=== PATIENT | male | born 1970 | race African-American/Black ===

== ENCOUNTER → 2017-04-16 | Outpatient (CLI) | payer MEDICAID ==
[~2017-04-16] MED LIST: ALB0.5V; ALDACTONE25 MG PO; ATOR10TA66 PO; CARV12.52 PO; CARV6.25 PO; CEFU500T5 PO; CEPH500C PO; CODE-54 PO; DIGO125T PO; FERR256T PO; FRS325T PO; FRSM20T PO; GLMP1T PO; HYDR-1231 PO; HYDR-3002 PO; HYDR-34 PO; HYDR-3720 PO; HYDR-3812; HYDR-757 PO; HYDR1TAB8 OP; IBUP400T22 PO; ISOS30TA74 PO; LOVA20TA2 PO; MAGN400T6 PO; MELO15TA14 PO; MTF500T PO; MTP50T PO; OMEG1CAP51 PO; PHEN118S12; TRAM50TA2 PO; TRM50T PO; [UNRECOGNIZED DRUG - REMARK]
--- NOTE | 2017-04-16 14:06 | Diagnostic Imaging Report ---
Three views of the left knee. INDICATION: Fall. FINDINGS: There is an elongated ossification along the upper medial aspect of the medial femoral condyle with well-corticated margins. This could be related to an avulsion injury of indeterminate age or injury to the proximal aspect of the MCL. There is no acute fracture seen otherwise. Osteophyte formation at the tibial spine and the lateral compartment is seen. There is a moderate suprapatellar effusion suggested. IMPRESSION: Curvilinear ossification along the upper aspect of the medial femoral condyle could relate to an avulsion injury of indeterminate age or sequela of prior MCL injury. Moderate joint effusion. Correlate clinically and with MRI of the left knee if needed. Dictated by: Dictated on workstation # [id number]
== END ==
LOC: RAD 10:31
PROVIDERS: ATTEND Family Medicine
DX: M25.562 Pain in left knee (principal); W19.XXXA Unspecified fall, initial encounter
CPT/HCPCS: 73562

== ENCOUNTER 2017-04-27 19:09 | Emergency (ER) | payer MEDICAID ==
[~2017-04-27] VITALS: Ht 182.9 cm; Wt 81.6 kg
[2017-04-27] MEDS ORDERED: NS IV 1000 ML 1,000 ML IV ONE (19:16)
[2017-04-27] MEDS ORDERED: magnesium (19:20)
[2017-04-27 19:33] LABS: BASOPHILS % (AUTO) 0 % (0-10); EOSINOPHILS % (AUTO) 0 % (0-10); LYMPHOCYTES # (AUTO) 2.7 X 10^3 (1.0-4.0); LYMPHOCYTES % (AUTO) 13 % (12-44); MEAN CORPUSCULAR HEMOGLOBIN 26 PG (25-34); MEAN CORPUSCULAR HGB CONC 34 G/DL (32-36); MEAN CORPUSCULAR VOLUME 76 FL (80-99); MEAN PLATELET VOLUME 9.1 FL (7.4-10.4); MONOCYTES # (AUTO) 1.2 X 10^3 (0.0-1.0); MONOCYTES % (AUTO) 6 % (0-12); NEUTROPHILS # (AUTO) 17.4 X 10^3 (1.8-7.8); NEUTROPHILS % (AUTO) 82 % (42-75); PLATELET COUNT 398 10^3/uL (130-400); RED BLOOD COUNT 5.26 10^6/uL (4.35-5.85); RED CELL DISTRIBUTION WIDTH 14.9 % (10.0-14.5); WHITE BLOOD COUNT 21.3 10^3/uL (4.3-11.0)
--- NOTE | 2017-04-27 19:39 | Diagnostic Imaging Report ---
INDICATION: Altered mental status. Comparison with 07/16/2010. FINDINGS: The lungs are well-aerated. There are no infiltrates. Heart is upper limits of normal. There is no evidence of pulmonary edema. No hilar adenopathy. No pneumothorax or pleural effusion. ICD pacer on the left with leads remaining in good position. IMPRESSION: Stable portable chest with no evidence of acute failure. Dictated by: Dictated on workstation # [id number]
[2017-04-27 19:55] LABS: BAND NEUTROPHILS 2 %; BASOPHILS % (MANUAL) 0 %; EOSINOPHILS % (MANUAL) 0 %; LYMPHOCYTES % (MANUAL) 17 %; NEUTROPHILS % (MANUAL) 74 %
[2017-04-27 19:58] LABS: ALANINE AMINOTRANSFERASE 21 U/L (0-55); ALBUMIN 4.7 G/DL (3.2-4.5); ANION GAP 18 MMOL/L (5-14); ASPARTATE AMINO TRANSFERASE 32 U/L (5-34); BILIRUBIN,TOTAL 0.6 MG/DL (0.1-1.0); BLOOD UREA NITROGEN 17 MG/DL (7-18); BUN/CREATININE RATIO 11; CARBON DIOXIDE 22 MMOL/L (21-32); CHLORIDE 100 MMOL/L (98-107); CREATININE SERUM 1.49 MG/DL (0.60-1.30); GFR ESTIMATED > 60; GLUCOSE 168 MG/DL (70-105); MAGNESIUM 2.9 MG/DL (1.8-2.4); POTASSIUM 3.7 MMOL/L (3.6-5.0); SODIUM 140 MMOL/L (135-145); TOTAL PROTEIN 8.1 G/DL (6.4-8.2)
[2017-04-27 19:59] LABS: ALCOHOL < 10 MG/DL (<10)
[2017-04-27 20:05] LABS: DIGOXIN < 0.30 NG/ML (0.80-2.00); TROPONIN I < 0.30 NG/ML (<0.30)
[2017-04-27 20:17] LABS: BILIRUBIN,URINE NEGATIVE (NEGATIVE); KETONES,URINE NEGATIVE (NEGATIVE); LEUKOCYTE ESTERASE ,URINE NEGATIVE (NEGATIVE); NITRITE,URINE NEGATIVE (NEGATIVE); PH,URINE 6 (5-9); PROTEIN,URINE 2+ (NEGATIVE); UROBILINOGEN,URINE NORMAL (NORMAL)
[2017-04-27 20:30] LABS: SQUAMOUS EPITHELIAL CELL,UR RARE /HPF
--- NOTE | 2017-04-27 21:14 | ED Psychosocial ---
General Chief Complaint: Altered Mental Status Stated Complaint: SUICIDAL, VIOLENT BEHAVIOR Nursing Triage Note: pt to er per ems with police at side. pt is handcuffed to cot upon arrival. ems was called to home by pt's girlfriend for c/o suicidal comments et unusual behavior. unknown substance assumed ingested. he was tearing house up. laying on bathroom floor very drowsy upon police arrival. police requesting medical et psych eval. pt c/o dry mouth. states, "you got the wrong reyna." he denies suicidal ideation upon arrival. Source: patient Exam Limitations: no limitations History of Present Illness Time seen by provider: 19:15 Initial Comments This patient arrives to the emergency room via EMS accompanied by [place] police. He was restrained with handcuffs for combative and uncooperative behavior. Patient's behavior and speech is irrational. 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 Patient denies any health complaints except for extreme thirst. He denies suicidal ideation upon arrival. Patient was reportedly violent at home and was tearing up the house. See note above. Allergies and Home Medications Allergies Coded Allergies: No Known Drug Allergies (Unverified , 02/10/10) Home Medications Atorvastatin Calcium 10 Mg Tablet, 10 MG PO HS, (Reported) Digoxin 125 Mcg Tablet, 0.125 MG PO HS, (Reported) Docosahexanoic Acid/Epa 1 Cap Capsule, 1,000 MG PO DAILY, (Reported) Ferrous Gluconate 256 Mg Tablet, 256 MG PO DAILY, (Reported) Furosemide 20 Mg Tab, 60 MG PO BID, (Reported) TAKE 3 (20MG) TABS Glimepiride 1 Mg Tab, 1 MG PO DAILY, (Reported) Hydralazine Hcl 10 Mg Tablet, 20 MG PO TID, (Reported) TAKE 2 (10MG) TABS Hydrocodone/Acetaminophen 1 Each Tablet, #30 (Reported) Metformin Hcl 500 Mg Tablet, 500 MG PO BID WITH MEALS, (Reported) Metoprolol Tartrate 50 Mg Tablet, 50 MG PO BID, (Reported) Spironolactone 25 Mg Tablet, 25 MG PO DAILY, (Reported) [magnesium] , (Reported) Time Seen by Provider: 19:15 Constitutional: see HPI EENTM: no symptoms reported Respiratory: no symptoms reported Cardiovascular: no symptoms reported Gastrointestinal: see HPI (thirst) Genitourinary: no symptoms reported Musculoskeletal: no symptoms reported Skin: no symptoms reported Psychiatric/Neurological: See HPI Past Cgemdim-Erqvvi-Lzggmb Hx Patient Social History Alcohol Use: Occasionally Uses Recreational Drug Use: Yes (PCP) Smoking Status: Current Everyday Smoker Recent Foreign Travel: No Contact w/Someone Who Travel: No Recent Infectious Disease Expo: No Immunizations Up To Date Tetanus Booster (TDap): Unknown Date of Influenza Vaccine: Jul 24, 2014 Seasonal Allergies Seasonal Allergies: No Surgeries HX Surgeries: Yes (RIGHT ANKLE FX / ORIF) Surgeries: Defibrillator, Orthopedic Respiratory Hx Respiratory Disorders: No Cardiovascular Hx Cardiac Disorders: Yes (CARDIOMYOPATHY, DEFIBRILLATOR, CHF) Cardiac Disorders: Cardiomyopathy, Coronary Artery Disease, Heart Attack, High Cholesterol Neurological Hx Neurological Disorders: No Reproductive System Hx Reproductive Disorders: No Genitourinary Hx Genitourinary Disorders: No Gastrointestinal Hx Gastrointestinal Disorders: Yes (ELEVATED LIVER ENZYMES PER HX) Gastrointestinal Disorders: Liver Disease/Jaundice Musculoskeletal Hx Musculoskeletal Disorders: Yes Musculoskeletal Disorders: Fractures Endocrine Hx Endocrine Disorders: Yes Endocrine Disorders: Diabetes, Non-Insulin dep HEENT HX ENT Disorders: No Cancer Hx Cancer: No Psychosocial Hx Psychiatric Problems: No Integumentary HX Skin/Integumentary Disorder: No Blood Transfusions Hx Blood Disorders: No Physical Exam Vital Signs Vital Sign - Last 12Hours 04/27/17 04/27/17 19:09 21:15 Temp 100.0 Pulse 96 Resp 16 B/P (MAP) 136/91 Pulse Ox 97 O2 Delivery Room Air Capillary Refill : Less Than 3 Seconds General Appearance: WD/WN, moderate distress HEENT: PERRL/EOMI, normal ENT inspection, other (oropharynx somewhat dry) Neck: normal inspection Respiratory: lungs clear, normal breath sounds, no respiratory distress, no accessory muscle use Cardiovascular: regular rate, rhythm, no edema, no murmur Gastrointestinal: normal bowel sounds, non tender, soft Extremities: normal inspection, no pedal edema Neurologic/Psychiatric: wellness director II-XII nml as tested, no motor/sensory deficits, alert, other (agitated, angry, disoriented to date and month) Appearance/Memory: disheveled Behavior/Eye Contact: avoids eye contact, belligerent, uncooperative Skin: normal color, warm/dry Progress/Results/Core Measures Results/Orders Lab Results Laboratory Tests Test 04/27/17 19:23 04/27/17 20:10 04/27/17 20:40 Range/Units White Blood Count 21.3 H 4.3-11.0 10^3/uL Red Blood Count 5.26 4.35-5.85 10^6/uL Hemoglobin 13.7 13.3-17.7 G/DL Hematocrit 40 40-54 % Mean Corpuscular Volume 76 L 80-99 FL Mean Corpuscular Hemoglobin 26 25-34 PG Mean Corpuscular Hemoglobin Concent 34 32-36 G/DL Red Cell Distribution Width 14.9 H 10.0-14.5 % Platelet Count 398 130-400 10^3/uL Mean Platelet Volume 9.1 7.4-10.4 FL Neutrophils (%) (Auto) 82 H 42-75 % Lymphocytes (%) (Auto) 13 12-44 % Monocytes (%) (Auto) 6 0-12 % Eosinophils (%) (Auto) 0 0-10 % Basophils (%) (Auto) 0 0-10 % Neutrophils # (Auto) 17.4 H 1.8-7.8 X 10^3 Lymphocytes # (Auto) 2.7 1.0-4.0 X 10^3 Monocytes # (Auto) 1.2 H 0.0-1.0 X 10^3 Eosinophils # (Auto) 0.0 0.0-0.3 10^3/uL Basophils # (Auto) 0.0 0.0-0.1 10^3/uL Neutrophils % (Manual) 74 % Lymphocytes % (Manual) 17 % Monocytes % (Manual) 7 % Eosinophils % (Manual) 0 % Basophils % (Manual) 0 % Band Neutrophils 2 % Blood Morphology Comment NORMAL Sodium Level 140 135-145 MMOL/L Potassium Level 3.7 3.6-5.0 MMOL/L Chloride Level 100 98-107 MMOL/L Carbon Dioxide Level 22 21-32 MMOL/L Anion Gap 18 H 5-14 MMOL/L Blood Urea Nitrogen 17 7-18 MG/DL Creatinine 1.49 H 0.60-1.30 MG/DL Estimat Glomerular Filtration Rate > 60 BUN/Creatinine Ratio 11 Glucose Level 168 H 70-105 MG/DL Calcium Level 10.0 8.5-10.1 MG/DL Magnesium Level 2.9 H 1.8-2.4 MG/DL Total Bilirubin 0.6 0.1-1.0 MG/DL Aspartate Amino Transf (AST/SGOT) 32 5-34 U/L Alanine Aminotransferase (ALT/SGPT) 21 0-55 U/L Alkaline Phosphatase 54 40-136 U/L Troponin I < 0.30 <0.30 NG/ML C-Reactive Protein High Sensitivity 0.08 0.00-0.50 MG/DL B-Type Natriuretic Peptide 35.0 <100.0 PG/ML Total Protein 8.1 6.4-8.2 G/DL Albumin 4.7 H 3.2-4.5 G/DL Digoxin Level < 0.30 L 0.80-2.00 NG/ML Serum Alcohol < 10 <10 MG/DL Urine Color YELLOW Urine Clarity CLEAR Urine pH 6 5-9 Urine Specific [place] 1.015 L 1.016-1.022 Urine Protein 2+ H NEGATIVE Urine Glucose (UA) NEGATIVE NEGATIVE Urine Ketones NEGATIVE NEGATIVE Urine Nitrite NEGATIVE NEGATIVE Urine Bilirubin NEGATIVE NEGATIVE Urine Urobilinogen NORMAL NORMAL MG/DL Urine Leukocyte Esterase NEGATIVE NEGATIVE Urine RBC (Auto) 1+ H NEGATIVE Urine RBC NONE /HPF Urine WBC NONE /HPF Urine Squamous Epithelial Cells RARE /HPF Urine Crystals NONE /LPF Urine Bacteria NONE /HPF Urine Casts NONE /LPF Urine Mucus NEGATIVE /LPF Urine Culture Indicated NO Urine Opiates Screen NEGATIVE NEGATIVE Urine Oxycodone Screen NEGATIVE NEGATIVE Urine Methadone Screen NEGATIVE NEGATIVE Urine Propoxyphene Screen NEGATIVE NEGATIVE Urine Barbiturates Screen NEGATIVE NEGATIVE Ur Tricyclic Antidepressants Screen NEGATIVE NEGATIVE Urine Phencyclidine Screen POSITIVE H NEGATIVE Urine Amphetamines Screen NEGATIVE NEGATIVE Urine Methamphetamines Screen NEGATIVE NEGATIVE Urine Benzodiazepines Screen NEGATIVE NEGATIVE Urine Cocaine Screen NEGATIVE NEGATIVE Urine Cannabinoids Screen NEGATIVE NEGATIVE Lactic Acid Level 0.95 0.50-2.00 MMOL/L Micro Results Microbiology 04/27/17 Blood Culture - Preliminary, Resulted No growth My Orders Orders - NIYA SALGADO MD Alcohol (04/27/17 19:16) BNP (04/27/17 19:16) Cbc With Automated Diff (04/27/17 19:16) Comprehensive Metabolic Panel (04/27/17 19:16) Digoxin (04/27/17 19:16) Drug Screen Stat (Urine) (04/27/17 19:16) Magnesium (04/27/17 19:16) Troponin I (04/27/17 19:16) Ua Culture If Indicated (04/27/17 19:16) Chest 1 View, Ap/Pa Only (04/27/17 19:16) Saline Lock/Iv-Start (04/27/17 19:16) Ekg Tracing (04/27/17 19:16) Monitor-Rhythm Ecg Trace Only (04/27/17 19:16) Ns Iv 1000 Ml (Sodium Chloride 0.9%) (04/27/17 19:16) Manual Differential (04/27/17 19:23) Hs C Reactive Protein (04/27/17 20:19) Lactic Acid Analyzer (04/27/17 20:19) Blood Culture (04/27/17 20:19) Medications Given in ED Vital Signs/I&O Blood Pressure Mean: 106 Progress Note : Progress Note Patient eventually calm down. Police stayed for an extended period of time to ensure patient compliance. He received a liter of IV fluids. Leukocytosis was noted without any identified source of infection. CRP was not elevated. Patient ultimately was discharged with improved behavior. Patient did test positive for PCP as suspected by police. Patient expressed no suicidal ideation while in the emergency room. Departure Impression Impression: Primary Impression: PCP (phencyclidine) abuse Additional Impressions: Agitation Leukocytosis Qualified Codes: D72.829 - Elevated white blood cell count, unspecified Disposition: 01 HOME, SELF-CARE Condition: Improved Departure-Patient Inst. Decision time for Depature: 21:12 Referrals: NNEKA CANELA DO (PCP/Family) Primary Care Physician Patient Instructions: Drug Abuse and Drug Addiction (DC) Add. Discharge Instructions: Follow-up with Dr. Canela as soon as possible. Your white blood cell count was elevated today (leukocytosis). You need to see Dr. Canela about repeating a blood test to check this again. Refrain from any illicit or recreational drug use. Discuss drug abuse treatment programs with Dr. Canela. Return to the ER symptoms worsen. All discharge instructions reviewed with patient and/or family. Voiced understanding. Copy Copies To 1: NNEKA CANELA JOSHUA T MD Apr 27, 2017 21:14
[2017-04-27 21:15] VITALS: BP 140/93
== END 2017-04-27 21:15 | disposition home or self-care (01) ==
LOC: EDUNIT# 19:09 → ER 19:15
DX: F16.10 Hallucinogen abuse, uncomplicated (principal); R45.1 Restlessness and agitation; D72.829 Elevated white blood cell count, unspecified; E11.9 Type 2 diabetes mellitus without complications; E78.00 Pure hypercholesterolemia, unspecified; I25.10 Atherosclerotic heart disease of native coronary artery without angina pectoris; Z79.84 Long term (current) use of oral hypoglycemic drugs; Z95.810 Presence of automatic (implantable) cardiac defibrillator
CPT/HCPCS: 36415; 71010; 80053; 80162; 80306; 80320; 81000; 83605; 83735; 83880; 84484; 85007; 85027; 86141; 87040; 93005

== ENCOUNTER → 2017-09-17 | Outpatient (CLI) | payer MEDICAID ==
[~2017-09-17] MED LIST changes: +magnesium
[2017-09-17 09:47] LABS: MEAN PLATELET VOLUME 9.2 FL (7.4-10.4); RED BLOOD COUNT 5.5 10^6/uL (4.35-5.85); RED CELL DISTRIBUTION WIDTH 15.3 % (10.0-14.5); WHITE BLOOD COUNT 9.5 10^3/uL (4.3-11.0)
[2017-09-17 10:07] LABS: ALANINE AMINOTRANSFERASE 21 U/L (0-55); ALBUMIN 4.5 GM/DL (3.2-4.5); ANION GAP 9 MMOL/L (5-14); ASPARTATE AMINO TRANSFERASE 14 U/L (5-34); BILIRUBIN,TOTAL 0.3 MG/DL (0.1-1.0); BLOOD UREA NITROGEN 14 MG/DL (7-18); BUN/CREATININE RATIO 14; CALCIUM 9.6 MG/DL (8.5-10.1); CARBON DIOXIDE 29 MMOL/L (21-32); CHLORIDE 101 MMOL/L (98-107); CHOLESTEROL 175 MG/DL (< 200); DIRECT LDL 84 MG/DL (1-129); GFR ESTIMATED > 60; GLUCOSE 173 MG/DL (70-105); POTASSIUM 4.3 MMOL/L (3.6-5.0); SODIUM 139 MMOL/L (135-145); TRIGLYCERIDES 97 MG/DL (<150); VLDL CHOLESTEROL 19 MG/DL (5-40)
== END ==
LOC: LAB 09:21
PROVIDERS: ATTEND Family Medicine
DX: I25.10 Atherosclerotic heart disease of native coronary artery without angina pectoris (principal); E11.9 Type 2 diabetes mellitus without complications
CPT/HCPCS: 36415; 80053; 80061; 83036; 85027

== ENCOUNTER → 2018-01-13 | Outpatient (CLI) | payer MEDICAID ==
[~2018-01-13] MED LIST changes: +ACHD5005; -HYDR-3812
== END ==
LOC: CARD 12:44
PROVIDERS: ATTEND Internal Medicine Cardiovascular Disease
DX: I11.0 Hypertensive heart disease with heart failure (principal); I50.22 Chronic systolic (congestive) heart failure; E11.9 Type 2 diabetes mellitus without complications; E78.4 Other hyperlipidemia; I25.5 Ischemic cardiomyopathy; Z91.19 Patient's noncompliance with other medical treatment and regimen; Z95.810 Presence of automatic (implantable) cardiac defibrillator; Z72.0 Tobacco use
CPT/HCPCS: 93306

== ENCOUNTER → 2019-11-08 | Outpatient (CLI) | payer MEDICAID ==
[~2019-11-08] VITALS: Ht 186 cm; Wt 89.0 kg
[~2019-11-08] MED LIST changes: +CATHETER FLUSH 10 ML SYR IV PRN; +REGADENOSON 0.4 MG/5 ML SYR (LEXISCAN) IV ONE
[2019-11-08 09:17] VITALS: BP 128/77
[2019-11-08 09:20] VITALS: BP 136/82
--- NOTE | 2019-11-10 12:34 | STRESS TEST ---
DATE OF SERVICE: 11/08/2019 RESTING AND POST REGADENOSON TECHNETIUM-99M TETROFOSMIN SPECT CT IMAGING ORDERING PHYSICIAN: Nat Dominguez APRN PRIMARY PHYSICIAN: Yassine Tadeo DO. OTHER PHYSICIAN: Rajeev Sears MD, MA, FACP, FACC. CLINICAL DIAGNOSES: History of dilated cardiomyopathy and systolic congestive heart failure. Baseline images were carried out after injection of 10.88 mCi of technetium-99m Tetrofosmin. This was followed by 0.4 mg regadenoson and 28.1 mCi of technetium-99m Tetrofosmin for stress imaging. The electrocardiogram showed sinus rhythm at baseline. The electrocardiogram is suggestive of left ventricular hypertrophy. There is nonspecific ST abnormality. The electrocardiogram did not change significantly with the regadenoson infusion. The patient noted mild shortness of breath following regadenoson infusion, which resolved in a few minutes. Review of images at rest and following stress does not indicate any distinct perfusion defects consistent with significant myocardial ischemia or infarction. Gated images show mild to moderate global hypokinesis, which left him with a calculated left ventricular ejection fraction 42%. Left ventricular end diastolic volume is 106 mL. TID is absent (0.96). CONCLUSIONS: 1. No evidence of significant myocardial ischemia or infarction. 2. Mild to moderate global hypokinesis of left ventricle with a calculated ejection fraction of 42%. 3. Mild cardiomegaly. Job ID: [id number] DocumentID: [id number] Dictated Date: 11/10/2019 10:10:12 Body Shop Manager Date: 11/10/2019 12:33:14 Dictated By: RAJEEV SEARS MD, MUKUL, FACP, FACC,
== END ==
LOC: CARD 07:28
PROVIDERS: ATTEND Nurse Practitioner Family
DX: I50.22 Chronic systolic (congestive) heart failure (principal); I42.0 Dilated cardiomyopathy; I51.7 Cardiomegaly
CPT/HCPCS: 78452; 93017

== ENCOUNTER → 2020-10-25 | Outpatient (CLI) | payer MEDICAID ==
[~2020-10-25] MED LIST changes: -CATHETER FLUSH 10 ML SYR IV PRN; -REGADENOSON 0.4 MG/5 ML SYR (LEXISCAN) IV ONE
== END ==
LOC: CARD 14:30
PROVIDERS: ATTEND Nurse Practitioner Family
DX: I42.0 Dilated cardiomyopathy (principal)

== ENCOUNTER 2022-03-13 14:26 | Emergency (ER) | payer MEDICAID ==
[~2022-03-13] VITALS: Ht 185 cm; Wt 85.7 kg
--- NOTE | 2022-03-13 15:13 | ED Cardiac General ---
History of Present Illness General Chief Complaint: Cardiac/General Problems Stated Complaint: DEFIB VIBRATING Nursing Triage Note: PT PRESENTS TO ED ACCOMPANIED BY SPOUSE WITH COMPLAINTS OF HIS DEFIB "VIBRATING" SINCE LAST NIGHT. PT DENIES PAIN Source: patient Exam Limitations: no limitations History of Present Illness Date Seen by Provider: Mar 13, 2022 Time Seen by Provider: 15:11 Initial Comments To ER with reports that his defibrillator is vibrating. He follows with Dr. Sears who placed his defibrillator for history of nonischemic Timing/Duration: changing over time Severity: mild Prior CP/Workup: no prior chest pain NTG SL TREE EXPERT: No ASA po TREE EXPERT: No Associated Systoms: Denies Symptoms Allergies and Home Medications Allergies Coded Allergies: No Known Drug Allergies (Unverified , 02/10/10) Patient Home Medication List Home Medication List Reviewed: Yes Atorvastatin Calcium (Atorvastatin Calcium) 10 Mg Tablet, 10 MG PO HS, (Reporte d) Entered as Reported by: HIGINIO MORALEZ on 11/30/142018 Digoxin (Digoxin 125 Mcg) 125 Mcg Tablet, 0.125 MG PO HS, (Reported) Entered as Reported by: KASH HENNESSY on 07/16/101712 Docosahexanoic Acid/Epa (Fish Oil 1,000 Mg Softgel) 1 Cap Capsule, 1,000 MG PO DAILY, (Reported) Entered as Reported by: ZENON SANTANA on 12/18/141514 Ferrous Gluconate (Iron) 256 Mg Tablet, 256 MG PO DAILY, (Reported) Entered as Reported by: ZENON SANTANA on 12/18/14 151 Furosemide (Lasix Tab) 20 Mg Tab, 60 MG PO BID, (Reported) Entered as Reported by: KASH HENNESSY on 07/16/101712 Glimepiride (Amaryl) 1 Mg Tab, 1 MG PO DAILY, (Reported) Entered as Reported by: KASH HENNESSY on 07/16/101712 Hydralazine Hcl (Hydralazine Hcl) 10 Mg Tablet, 20 MG PO TID, (Reported) Entered as Reported by: KASH HENNESSY on 07/16/101712 Hydrocodone Bit/Acetaminophen (Lortab 5 Mg Tablet) 1 Each Tablet, (Reported) Entered as Reported by: IMANI SAPP on 04/24/16 0816 Metformin Hcl (Metformin 500 Mg) 500 Mg Tablet, 500 MG PO BID WITH MEALS, (Reported) Entered as Reported by: HIGINIO MORALEZ on 11/30/142018 Metoprolol Tartrate (Metoprolol Tartrate 50 Mg) 50 Mg Tablet, 50 MG PO BID, (Reported) Entered as Reported by: GIGI MARQUES on 02/25/13 08 Spironolactone (Aldactone) 25 Mg Tablet, 25 MG PO DAILY, (Reported) Entered as Reported by: GIGI MARQUES on 02/25/13816 [magnesium] , (Reported) Entered as Reported by: HOLLY ALARCON on 04/27/171919 Review of Systems Review of Systems Constitutional: see HPI EENTM: No Symptoms Reported Respiratory: No Symptoms Reported Cardiovascular: No Symptoms Reported Gastrointestinal: No Symptoms Reported Genitourinary: No Symptoms Reported Musculoskeletal: no symptoms reported Skin: no symptoms reported Psychiatric/Neurological: No Symptoms Reported Endocrine: No Symptoms Reported Hematologic/Lymphatic: No Symptoms Reported Past Lvinxsb-Syfxyc-Xhxkda Hx Patient Social History Tobacco Use?: Yes Tobacco type used: Cigarettes Smoking Status: Current Everyday Smoker Substance use?: No Alcohol Use?: No Pt feels they are or have been: No Immunizations Up To Date Tetanus Booster (TDap): Unknown First/Initial COVID19 Vaccinat: YES Second COVID19 Vaccination Ashish: YES COVID19 Vaccine Voice Professor: HARSH Seasonal Allergies Seasonal Allergies: No Past Medical History Surgery/Hospitalization HX: DEFIBULATOR, CHF, DM Surgeries: Yes (RIGHT ANKLE FX / ORIF) Defibrillator, Orthopedic Respiratory: No Cardiac: Yes (CARDIOMYOPATHY, DEFIBRILLATOR, CHF) Cardiomyopathy, Coronary Artery Disease, Heart Attack, High Cholesterol Neurological: No Reproductive Disorders: No Gastrointestinal: Yes (ELEVATED LIVER ENZYMES PER HX) Liver Disease/Jaundice Musculoskeletal: Yes Fractures Endocrine: Yes Diabetes, Non-Insulin dep Cancer: No Psychosocial: No Integumentary: No Blood Disorders: No Physical Exam Vital Signs Vital Signs - First Documented 03/13/22 14:41 Temp 36.4 Pulse 69 Resp 18 B/P (MAP) 99/70 (80) Pulse Ox 99 Capillary Refill : Less Than 3 Seconds Height, Weight, BMI Height: 6'1" Weight: 180lbs. 6.4oz. 81.440388eg; 25.00 BMI Method:Estimated General Appearance: No Apparent Distress, WD/WN HEENT: PERRL/EOMI, TMs Normal Neck: Full Range of Motion, Normal Inspection Respiratory: No Accessory Muscle Use, No Respiratory Distress Cardiovascular: Regular Rate, Rhythm, Normal Peripheral Pulses Gastrointestinal: Normal Bowel Sounds, Non Tender, Soft Extremity: Normal Capillary Refill, Normal Inspection Neurologic/Psychiatric: Alert, Oriented x3 Skin: Normal Color, Warm/Dry Progress/Results/Core Measures Results/Orders Vital Signs/I&O 03/13/22 14:41 Temp 36.4 Pulse 69 Resp 18 B/P (MAP) 99/70 (80) Pulse Ox 99 Blood Pressure Mean: 80 Departure Communication (Admissions) [id number]-after several phone calls, we determined that his defibrillator is a [employer] type. There was some miscommunication, Dr. Sears's office to have most of thought the patient was getting shocked. [employer] dermatology sales representative on-call states that this vibration that he is feeling indicates that the device is nearing the end of its life and from the onset of vibrations he has 6 months until he needs the batteries replaced. They state they would not have referred him to the emergency room for this as this is only indicative of need for device exchange. I will discharge, he will follow-up with Dr. Sears. Impression Primary Impression: ICD (implantable cardioverter-defibrillator) battery depletion Disposition: 01 HOME, SELF-CARE Condition: Stable Departure-Patient Inst. Decision time for Depature: 16:29 Referrals: NNEKA CANELA DO (PCP/Family) Primary Care Physician ANDRAE SEARS MD [facility] Patient Instructions: Implantable Cardioverter Defibrillator Generator Change Add. Discharge Instructions: 1. Call Dr. Sears's office to schedule an appointment to be seen for battery change All discharge instructions reviewed with patient and/or family. Voiced under standing. Copy Copies To 1: ANDRAE SEARS MD [facility] VICKI ELLIS APRN Mar 13, 2022 15:13
--- NOTE | 2022-03-13 15:18 | Diagnostic Imaging Report ---
CHEST 1 VIEW, AP/PA ONLY Indication: Chest pain. Comparison: 04/27/2017 Findings: No focal airspace disease in the visualized lungs. Please note that the posterior lower lobes are poorly evaluated by portable radiography. No pleural effusion or pneumothorax. Normal cardiomediastinal silhouette. Stable left pectoral transvenous single chamber pacemaker/ICD. Impression: 1. No acute cardiopulmonary process by portable radiography. Dictated by: Dictated on workstation # [id number]
[2022-03-13 16:36] VITALS: BP 117/82
== END 2022-03-13 16:36 | disposition home or self-care (01) ==
LOC: EDUNIT# 14:26 → ER 14:27
DX: T82.111A Breakdown (mechanical) of cardiac pulse generator (battery), initial encounter (principal); F17.210 Nicotine dependence, cigarettes, uncomplicated
CPT/HCPCS: 71045; 93005; 93041

== ENCOUNTER → 2022-08-27 | Outpatient (CLI) | payer MEDICAID | LOC: CARD 14:31 | PROVIDERS: ATTEND Nurse Practitioner Family | DX: I42.0 Dilated cardiomyopathy (principal); I51.7 Cardiomegaly | CPT/HCPCS: 93306 ==

== ENCOUNTER 2022-10-07 07:16 | Day surgery (SDC) | payer MEDICAID ==
[~2022-10-07] VITALS: Ht 185.4 cm; Wt 89.8 kg
[2022-10-07] MEDS ORDERED: HEParin (CATH LAB) 0 ML IV ONE (07:41)
[2022-10-07] MEDS ORDERED: NS IV 1000 ML 0 ML ONE ×2 (07:41→08:13)
[2022-10-07] MEDS ORDERED: LIDOCAINE 1% INJ 30 ML (XYLOCAINE) VIAL ONE (07:41)
[2022-10-07] MEDS ORDERED: NS IV 1000 ML 1,000 ML IV SCH (07:45)
[2022-10-07 07:56] VITALS: BP 131/81
[2022-10-07 08:16] LABS: HEMATOCRIT 45 % (40-54); HEMOGLOBIN 14.3 g/dL (13.3-17.7); MEAN CORPUSCULAR HEMOGLOBIN 26 pg (25-34); MEAN CORPUSCULAR HGB CONC 32 g/dL (32-36); MEAN CORPUSCULAR VOLUME 81 fL (80-99); PLATELET COUNT 374 10^3/uL (130-400); WHITE BLOOD COUNT 10.9 10^3/uL (4.3-11.0)
[2022-10-07 08:29] LABS: INR 0.9 (0.8-1.4); PROTHROMBIN TIME PATIENT 12.2 SEC (12.2-14.7)
[2022-10-07 08:30] LABS: ALBUMIN 4.4 GM/DL (3.2-4.5); BILIRUBIN,TOTAL 0.2 MG/DL (0.1-1.0); CALCIUM 9.1 MG/DL (8.5-10.1); CREATININE SERUM 1.09 MG/DL (0.60-1.30); POTASSIUM 4.6 MMOL/L (3.6-5.0); TOTAL PROTEIN 7.3 GM/DL (6.4-8.2)
[2022-10-07] MEDS ORDERED: MAGN400T39 PO (08:40)
[2022-10-07] MEDS ORDERED: METF-397 PO (08:40)
[2022-10-07] MEDS ORDERED: LISI10TA25 PO (08:40)
[2022-10-07] MEDS ORDERED: FERR134T PO (08:40)
[2022-10-07] MEDS ORDERED: ATOR10TA66 PO (08:40)
[2022-10-07] MEDS ORDERED: FURO20TA4 PO (08:40)
[2022-10-07] MEDS ORDERED: TERB250T88 PO (08:40)
[2022-10-07] MEDS ORDERED: FISH1CAP15 PO (08:40)
[2022-10-07] MEDS ORDERED: ACET325T38 PO (08:40)
[2022-10-07] MEDS ORDERED: GLIM4TAB5 PO (08:40)
[2022-10-07] MEDS ORDERED: HYDR-3922 PO (08:40)
[2022-10-07] MEDS ORDERED: METO100T12 PO (08:40)
[2022-10-07] MEDS ORDERED: DIGO125T3 PO (08:40)
[2022-10-07] MEDS ORDERED: LORA10TA7 PO (08:40)
[2022-10-07] MEDS ORDERED: EMPA25TA PO (08:40)
== END 2022-10-07 12:36 | disposition home or self-care (01) ==
LOC: CATH 07:16
PROVIDERS: ATTEND Internal Medicine Cardiovascular Disease
DX: I42.0 Dilated cardiomyopathy (principal); I11.9 Hypertensive heart disease without heart failure; I50.22 Chronic systolic (congestive) heart failure; E11.9 Type 2 diabetes mellitus without complications; R06.09 Other forms of dyspnea; F17.210 Nicotine dependence, cigarettes, uncomplicated; Z95.810 Presence of automatic (implantable) cardiac defibrillator; Z91.14 Patient's other noncompliance with medication regimen; Z91.199 Patient's noncompliance with other medical treatment and regimen due to unspecified reason; Z53.09 Procedure and treatment not carried out because of other contraindication; Z79.84 Long term (current) use of oral hypoglycemic drugs
CPT/HCPCS: 36415; 80053; 85027; 85610; 85730; 87081; 93005

== ENCOUNTER 2022-11-02 18:09 | Emergency (ER) | payer MEDICAID ==
[~2022-11-02] VITALS: Ht 182 cm; Wt 86.0 kg
[~2022-11-02 18:09] MED LIST changes: +ACET325T38 PO; +DIGO125T3 PO; +EMPA25TA PO; +FERR134T PO; +FISH1CAP15 PO; +FURO20TA4 PO; +GLIM4TAB5 PO; +HYDR-3922 PO; +LISI10TA25 PO; +LORA10TA7 PO; +MAGN400T39 PO; +METF-397 PO; +METO100T12 PO; +TERB250T88 PO
[2022-11-02] MEDS ORDERED: MIDAZOLAM 5 MG/5 ML (VERSED) VIAL ONE (18:18)
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
[2022-11-02] MEDS ORDERED: MIDAZOLAM 5 MG/5 ML (VERSED) VIAL IVP ONE ×2 (18:45)
[2022-11-02] MEDS ORDERED: NS IV 1000 ML 1,000 ML IV ONE (18:45)
[2022-11-02 18:46] LABS: BASOPHILS # (AUTO) 0.1 10^3/uL (0.0-0.1); BASOPHILS % (AUTO) 0 % (0-10); EOSINOPHILS % (AUTO) 0 % (0-10); HEMATOCRIT 47 % (40-54); LYMPHOCYTES # (AUTO) 3.7 10^3/uL (1.0-4.0); LYMPHOCYTES % (AUTO) 18 % (12-44); MEAN CORPUSCULAR HEMOGLOBIN 26 pg (25-34); MEAN CORPUSCULAR HGB CONC 32 g/dL (32-36); MEAN CORPUSCULAR VOLUME 80 fL (80-99); MEAN PLATELET VOLUME 9.3 fL (9.0-12.2); MONOCYTES # (AUTO) 1.3 10^3/uL (0.0-1.0); MONOCYTES % (AUTO) 7 % (0-12); NEUTROPHILS # (AUTO) 14.9 10^3/uL (1.8-7.8); NEUTROPHILS % (AUTO) 75 % (42-75); PLATELET COUNT 427 10^3/uL (130-400)
[2022-11-02 19:01] LABS: ALANINE AMINOTRANSFERASE 41 U/L (0-55); ALBUMIN 5.1 GM/DL (3.2-4.5); ALKALINE PHOSPHATASE 66 U/L (40-136); BILIRUBIN,TOTAL 0.4 MG/DL (0.1-1.0); BUN/CREATININE RATIO 11; CALCIUM 10.1 MG/DL (8.5-10.1); CARBON DIOXIDE 20 MMOL/L (21-32); CHLORIDE 99 MMOL/L (98-107); CREATININE SERUM 1.65 MG/DL (0.60-1.30); GFR ESTIMATED 50; GLUCOSE 234 MG/DL (70-105); MAGNESIUM 2.5 MG/DL (1.6-2.4); POTASSIUM 4.4 MMOL/L (3.6-5.0); SALICYLATE < 5.0 MG/DL (5.0-20.0); SODIUM 141 MMOL/L (135-145); TOTAL PROTEIN 8.5 GM/DL (6.4-8.2)
--- NOTE | 2022-11-02 19:01 | Diagnostic Imaging Report ---
INDICATION: Chest pain. COMPARISON: Prior examination from 03/13/2022. FINDINGS: The heart size is normal. The lungs are clear. There is no pleural effusion or pneumothorax. The mediastinum is unremarkable. Pacemaker overlies the left hemithorax. IMPRESSION: No acute cardiopulmonary abnormality. Dictated by: Dictated on workstation # [id number]
[2022-11-02 19:03] LABS: ANISOCYTOSIS SLIGHT; BAND NEUTROPHILS 0 %; BASOPHILS % (MANUAL) 0 %; EOSINOPHILS % (MANUAL) 0 %; LYMPHOCYTES % (MANUAL) 19 %; MONOCYTES % (MANUAL) 6 %; NEUTROPHILS % (MANUAL) 75 %
[2022-11-02 19:21] LABS: ACETAMINOPHEN < 10 UG/ML (10-30)
== END 2022-11-02 20:19 | disposition left against medical advice (07) ==
LOC: EDUNIT# 18:09 → ER 18:12
DX: F16.929 Hallucinogen use, unspecified with intoxication, unspecified (principal); R74.8 Abnormal levels of other serum enzymes
CPT/HCPCS: 71045; 80053; 83735; 83880; 84484; 85007; 85027; 93005; 93041; 99284; G0480 ×3; 36415; 80320; 80329

== ENCOUNTER 2023-08-26 18:51 | Emergency (ER) | payer MEDICAID ==
[~2023-08-26] VITALS: Ht 185 cm; Wt 85.0 kg
[2023-08-26 18:58] VITALS: BP 155/66
[2023-08-26] MEDS ORDERED: AMOX1TAB12 PO (19:26)
--- NOTE | 2023-08-26 19:27 | ED Integumentary General ---
General Chief Complaint: Skin/Wound Problems Stated Complaint: BOTTOM LIP WOUND - FALL Nursing Triage Note: fell and split inside of bottom lip thursday. is afraid it "isnt healing right". no bleeding noted. Source: patient Exam Limitations: no limitations (LIYA LI) History of Present Illness Date Seen by Provider: Aug 26, 2023 Time Seen by Provider: 19:23 Initial Comments Patient is a 53-year-old male who presents ED with a wound to his lower lip. Patient states he fell on Thursday busting his lower lip to open. Did not get seen. Noted to have some tissue that is dangling from the injury. Denies of any redness or swelling. Is diabetic. Up-to-date on his tetanus. Denies of any purulent drainage but does have a history of wound infections secondary to being diabetic. Patient denies any dental pain, chest pain, shortness of breath, nausea vomiting, diarrhea, fever, chills. (LIYA LI) Allergies and Home Medications Allergies Coded Allergies: No Known Drug Allergies (Unverified , 02/10/10) Patient Home Medication List Home Medication List Reviewed: Yes (LIYA LI) Acetaminophen (Tylenol) 325 Mg Tablet, 650 MG PO Q6H PRN for PAIN-MILD (1-4), (Reported) Entered as Reported by: TAYA SHELLEY on 10/07/22839 Amoxicillin/Potassium Clav (Amox Tr-K Clv 875-125 mg Tab) 875 Mg-125 Mg Tablet, 1 EACH PO BID Prescribed by: ZAHIRA DUTTON on 08/26/231925 Atorvastatin Calcium (Atorvastatin Calcium) 10 Mg Tablet, 10 MG PO HS, (Reported) Entered as Reported by: TAYA SHELLEY on 10/07/22 08 Digoxin (Digoxin) 125 Mcg (0.125 Mg) Tablet, 125 MCG PO HS, (Reported) Entered as Reported by: TAYA SHELLEY on 10/07/22 08 Empagliflozin (Jardiance) 25 Mg Tablet, 25 MG PO HS, (Reported) Entered as Reported by: TAYA SHELLEY on 10/07/22 0840 Ferrous Sulfate (High Potency Iron) 134 Mg (27 Mg) Tablet, 134 MG PO DAILY, (Reported) Entered as Reported by: TAYA SHELLEY on 10/07/22839 Fish Oil/Dha/Epa (Fish Oil 1,200 mg Fish Oil) 1,200 Mg-144 Mg-216 Mg Capsule, 1 EACH PO BID, (Reported) Entered as Reported by: TAYA SHELLEY on 10/07/22839 Furosemide (Furosemide) 20 Mg Tablet, 20 MG PO DAILY, (Reported) Entered as Reported by: TAYA SHELLEY on 10/07/22839 Glimepiride (Glimepiride) 4 Mg Tablet, 8 MG PO DAILY, (Reported) Entered as Reported by: TAYA SHELLEY on 10/07/22839 Hydralazine HCl (Hydralazine HCl) 10 Mg Tablet, 20 MG PO TID, (Reported) Entered as Reported by: TAYA SHELLEY on 10/07/22839 Lisinopril (Lisinopril) 10 Mg Tablet, 10 MG PO DAILY, (Reported) Entered as Reported by: TAYA SHELLEY on 10/07/22839 Loratadine (Loratadine) 10 Mg Tablet, 10 MG PO DAILY, (Reported) Entered as Reported by: TAYA SHELLEY on 10/07/22839 Magnesium Oxide (Magnesium) 400 Mg Magnesium Tablet, 400 MG PO DAILY, (Reported) Entered as Reported by: TAYA SHELLEY on 10/07/22839 Metformin HCl (Metformin HCl) 500 Mg Tablet, 1,000 MG PO BID WITH MEALS, (Reported) Entered as Reported by: TAYA SHELLEY on 10/07/22839 Metoprolol Tartrate (Metoprolol Tartrate) 100 Mg Tablet, 100 MG PO BID, (Reported) Entered as Reported by: TAYA SHELLEY on 10/07/22839 Terbinafine HCl (Terbinafine HCl) 250 Mg Tablet, 250 MG PO DAILY, (Reported) Entered as Reported by: TAYA SHELLEY on 10/07/22839 Review of Systems Review of Systems Constitutional: No chills, No diaphoresis EENTM: mouth pain; No hearing loss, No ear pain, No blurred vision Respiratory: No dyspnea on exertion Gastrointestinal: No abdominal pain, No diarrhea, No nausea, No vomiting Genitourinary: No decreased output, No discharge Musculoskeletal: No back pain, No joint pain, No joint swelling, No muscle pain Skin: change in color Psychiatric/Neurological: Denies Anxiety, Denies Depressed (LIYA LI) All Other Systems Reviewed Negative Unless Noted: Yes (LIYA LI) Past Cnlszhu-Qewegt-Envdur Hx Patient Social History Tobacco Use?: No Use of E-Cig and/or Vaping dev: No Substance use?: No Alcohol Use?: No Pt feels they are or have been: No (LIYA LI) Immunizations Up To Date Tetanus Booster (TDap): Unknown First/Initial COVID19 Vaccinat: YES Second COVID19 Vaccination Ashish: YES Third COVID19 Vaccination Date: YES (LIYA LI) Seasonal Allergies Seasonal Allergies: No (LIYA LI) Past Medical History Surgery/Hospitalization HX: DEFIBULATOR, CHF, DM Surgeries: Yes (RIGHT ANKLE FX / ORIF) Defibrillator, Orthopedic Respiratory: No Currently Using CPAP: No Currently Using BIPAP: No Cardiac: Yes (CARDIOMYOPATHY, DEFIBRILLATOR, CHF) Cardiomyopathy, Coronary Artery Disease, Heart Attack Neurological: No Reproductive Disorders: No Gastrointestinal: Yes (ELEVATED LIVER ENZYMES PER HX) Liver Disease/Jaundice Musculoskeletal: Yes Fractures Endocrine: Yes Diabetes, Non-Insulin dep Cancer: No Psychosocial: No Integumentary: No Blood Disorders: No (LIYA LI) Family Medical History No Pertinent Family Hx History from medical records as patient is unable to provide information (LIYA LI) Physical Exam Vital Signs Vital Signs - First Documented 08/26/23 18:58 Temp 36.9 Pulse 94 Resp 20 B/P (MAP) 155/66 (95) Pulse Ox 98 O2 Delivery Room Air (GURWINDER,MAHAD K DO) Vital Signs Capillary Refill : Less Than 3 Seconds (LIYA LI) General Appearance: WD/WN, no apparent distress HEENT: PERRL/EOMI, normal ENT inspection, TMs normal, pharynx normal, other (Patient has a small wound to his inner lower lip. No vermilion border involvement. Granulation tissue noted. Flap of tissue. No surrounding redness or swelling. No fluctuant mass.) Neck: non-tender, full range of motion, supple Cardiovascular: regular rate, rhythm, no edema, no gallop, no JVD Respiratory: chest non-tender, lungs clear, normal breath sounds, no respiratory distress, no accessory muscle use Gastrointestinal: normal bowel sounds, non tender, soft, no organomegaly Back: normal inspection, no CVA tenderness, no vertebral tenderness Extremities: normal range of motion, non-tender, normal inspection, no pedal edema Neurologic/Psychiatric: java oracle developer II-XII nml as tested, no motor/sensory deficits, alert, normal mood/affect, oriented x 3 Skin: warm/dry (LIYA LI) Progress/Results/Core Measures Results/Orders Medications Given in ED Current Medications Medications Dose Ordered Sig/Kathe Route Start Time Stop Time Status Last Admin Dose Admin Diphtheria/ Tetanus/Acell Pertussis 0.5 ml ONCE ONCE IM 08/26/23 19:30 08/26/23 19:31 DC 08/26/23 19:28 0.5 ML (GURWINDERMAHAD K DO) Vital Signs/I&O 08/26/23 18:58 Temp 36.9 Pulse 94 Resp 20 B/P (MAP) 155/66 (95) Pulse Ox 98 O2 Delivery Room Air (GURWINDERMAHAD [employer] DO) Blood Pressure Mean: 95 Departure Communication (PCP) Patient with a injury to his lower lip. This occurred Thursday after a fall. Wound appears to be healing. No surrounding redness, induration or fluctuant mass. Does have a small area of tissue which I removed by a 11 blade. Healing by secondary intention. No purulent drainage. Did discharge Augmentin if any redness or swelling develops as he is prone to infections and extensive medical history. If any worsening redness or swelling or pain to return back to ED. Follow-up with PCP in 2 to 3 days for reevaluation. Patient without any dental tenderness. Denies of any facial pain, headache, dizziness, visual changes. (LIYA LI) Impression Primary Impression: Injury of lip Disposition: HOME, SELF-CARE Condition: Stable Departure-Patient Inst. Decision time for Depature: 19:25 (LIYA LI) Referrals: NNEKA CANELA DO (PCP/Family) Primary Care Physician Patient Instructions: Mouth and dental injuries in adults Add. Discharge Instructions: Recommend continued topical antibiotic ointment. Will discharge with Augmentin if developing redness or swelling. If no improvement return back to ED All discharge instructions reviewed with patient and/or family. Voiced understanding. Scripts Amoxicillin/Potassium Clav (Amox Tr-K Clv 875-125 mg Tab) 875 Mg-125 Mg Tablet 1 EACH PO BID for 7 Days, #14 TAB Prov: LIYA LI 08/26/23 ATTENDING PHYSICIAN NOTE: I WAS PHYSICALLY PRESENT ER PHYSICIAN, BUT I WAS NOT INVOLVED IN ANY DECISION MAKING OR ANY CARE OF THIS PATIENT, AND I AM NOT COLLABORATING PHYSICIAN. (MAHAD PURDY DO) LIYA LI Aug 26, 2023 19:27 MAHAD PURDY DO Aug 26, 2023 22:30
[2023-08-26] MEDS ORDERED: Tetanus/Diphtheria/Pertussis (Acell) ADULT Vaccine 0.5 ML IM ONE (19:30)
== END 2023-08-26 19:32 | disposition home or self-care (01) ==
LOC: EDUNIT# 18:51 → ER 18:54
DX: S00.501A Unspecified superficial injury of lip, initial encounter (principal); Z23 Encounter for immunization; W19.XXXA Unspecified fall, initial encounter
CPT/HCPCS: 90715; 99284